=== PATIENT | female | born 1990 | race Caucasian/White ===

== ENCOUNTER → 2018-02-18 | Outpatient (CLI) | payer BC ==
[~2018-02-18] MED LIST: BUTA1TAB9 PO; ESCI5TAB PO; SULF1TAB35 PO
--- NOTE | 2018-02-18 14:51 | Diagnostic Imaging Report ---
INDICATION: Lump under the chin. FINDINGS: Sonographic interrogation of the area of lump was performed. There is a hypoechoic solid nodule at this location measuring 9 mm x 6 mm x 11 mm. This has an echogenic center and is suggestive of a lymph node. No other abnormality is seen. IMPRESSION: Normal sized lymph node at the area of palpable abnormality below the patient's chin. Dictated by: Dictated on workstation # [id number]
== END ==
LOC: RAD 13:30
PROVIDERS: ATTEND Nurse Practitioner
DX: R22.1 Localized swelling, mass and lump, neck (principal)
CPT/HCPCS: 76536

== ENCOUNTER 2021-02-14 09:15 | Emergency (ER) | payer SELFPAY ==
[~2021-02-14] VITALS: Ht 165 cm; Wt 172.0 kg
[~2021-02-14 09:15] MED LIST changes: +BUTA-235 PO; -BUTA1TAB9 PO
--- NOTE | 2021-02-14 10:09 | ED Abdominal Pain ---
General Chief Complaint: Abdominal/GI Problems Stated Complaint: RLQ PAIN, DIARRHEA Nursing Triage Note: PT AMB TO ROOM 6 PT CO OF R LQP 6/10 CRAMPING, PT STATES HAS STARTED HAVING DIARRHEA THIS AM SEVERAL TIMES. PT STATES NAUSEATED BUT NO VOMITING. PT DENIES FEVERS OR COUGH. Source of Information: Patient Exam Limitations: No Limitations History of Present Illness Date Seen by Provider: Feb 14, 2021 Time Seen by Provider: 09:54 Initial Comments Patient is a 30-year-old female who presents to the emergency department today with a chief complaint of right lower quadrant abdominal cramping and suprapubic discomfort. Patient states she woke up this morning with an onset of diarrhea that she states is partly watery. She states she is a little bit nauseated when she gets up and moves around but no vomiting. She has not had anything to eat other than a small applesauce and some sips of water this morning. Patient denies any discrete dysuria, urgency or frequency but states she has not been able to urinate since she got up the first time this morning. No recent fevers, chills, URI symptoms, cough or congestion. She ate food cooked at home all day yesterday. No other sick contacts. Patient has had no prior abdominal surgeries. She was concerned she might have appendicitis. All other review of systems reviewed and negative except as stated. Timing/Duration: 4-6 Hours Severity/Quality: Moderate Location: Other (Right lower quadrant pain, suprapubic pain) Radiation: No Radiation Associated Symptoms: Denies Symptoms Allergies and Home Medications Allergies Coded Allergies: amoxicillin (Verified Allergy, Unknown, 11/19/15) Home Medications Butalb/Acetaminophen/Caffeine 1 Each Tablet, 1 TAB PO UD, (Reported) Escitalopram Oxalate 5 Mg Tablet, Unknown Dose PO UD, (Reported) Sulfamethoxazole/Trimethoprim 1 Each Tablet, 1 EACH PO BID Prescribed by: BRIDGET TURPIN on 11/19/15 2701 Patient Home Medication List Home Medication List Reviewed: Yes Review of Systems Review of Systems Constitutional: see HPI EENTM: No Symptoms Reported Respiratory: No Symptoms Reported Cardiovascular: No Symptoms Reported Gastrointestinal: Abdominal Pain Genitourinary: Other (Decreased urinary frequency) Musculoskeletal: no symptoms reported Skin: no symptoms reported Psychiatric/Neurological: No Symptoms Reported All Other Systems Reviewed Negative Unless Noted: Yes Past Sifrvje-Laewrb-Gdwyib Hx Seasonal Allergies Seasonal Allergies: No Past Medical History Adenoidectomy Last Menstrual Period: Jan 24, 2021 Reproductive Disorders: No Anxiety Adverse Reaction/Blood Tranf: No Physical Exam Vital Signs Vital Signs - First Documented 02/14/21 09:15 Temp 35.7 Pulse 85 Resp 18 B/P (MAP) 168/114 (132) Pulse Ox 98 Capillary Refill : Less Than 3 Seconds Height/Weight/BMI Height: 5'5" Weight: 260lbs. oz. [id number]; 63.00 BMI Method:Stated General Appearance: WD/WN, no apparent distress HEENT: normal ENT inspection Neck: normal inspection Respiratory: lungs clear, normal breath sounds, no respiratory distress, no accessory muscle use Cardiovascular: regular rate, rhythm Gastrointestinal: soft, other (Mild tenderness/"pressure" right lower quadrant and suprapubic area) Extremities: non-tender, normal inspection, no pedal edema, no calf tenderness Back: normal inspection Neurologic/Psychiatric: alert, normal mood/affect, oriented x 3 Skin: normal color, warm/dry Progress/Results/Core Measures Results/Orders Lab Results Laboratory Tests Test 02/14/21 10:22 02/14/21 10:48 02/14/21 11:16 Range/Units Urine Color YELLOW YELLOW Urine Clarity CLEAR CLEAR Urine pH 6.0 6.0 5-9 Urine Specific Baker >=1.030 1.025 H 1.016-1.022 Urine Protein 1+ H NEGATIVE NEGATIVE Urine Glucose (UA) NEGATIVE NEGATIVE NEGATIVE Urine Ketones NEGATIVE NEGATIVE NEGATIVE Urine Nitrite NEGATIVE NEGATIVE NEGATIVE Urine Bilirubin 1+ H NEGATIVE NEGATIVE Urine Urobilinogen 0.2 0.2 < = 1.0 MG/DL Urine Leukocyte Esterase NEGATIVE NEGATIVE NEGATIVE Urine RBC (Auto) 3+ H 3+ H NEGATIVE White Blood Count 8.7 4.3-11.0 10^3/uL Red Blood Count 4.81 3.80-5.11 10^6/uL Hemoglobin 11.6 11.5-16.0 g/dL Hematocrit 38 35-52 % Mean Corpuscular Volume 80 80-99 fL Mean Corpuscular Hemoglobin 24 L 25-34 pg Mean Corpuscular Hemoglobin Concent 30 L 32-36 g/dL Red Cell Distribution Width 15.5 H 10.0-14.5 % Platelet Count 379 130-400 10^3/uL Mean Platelet Volume 9.6 9.0-12.2 fL Immature Granulocyte % (Auto) 0 % Neutrophils (%) (Auto) 79 H 42-75 % Lymphocytes (%) (Auto) 16 12-44 % Monocytes (%) (Auto) 4 0-12 % Eosinophils (%) (Auto) 0 0-10 % Basophils (%) (Auto) 1 0-10 % Neutrophils # (Auto) 6.9 1.8-7.8 10^3/uL Lymphocytes # (Auto) 1.4 1.0-4.0 10^3/uL Monocytes # (Auto) 0.4 0.0-1.0 10^3/uL Eosinophils # (Auto) 0.0 0.0-0.3 10^3/uL Basophils # (Auto) 0.0 0.0-0.1 10^3/uL Immature Granulocyte # (Auto) 0.0 0.0-0.1 10^3/uL Sodium Level 138 135-145 MMOL/L Potassium Level 4.1 3.6-5.0 MMOL/L Chloride Level 101 98-107 MMOL/L Carbon Dioxide Level 25 21-32 MMOL/L Anion Gap 12 5-14 MMOL/L Blood Urea Nitrogen 11 7-18 MG/DL Creatinine 0.85 0.60-1.30 MG/DL Estimat Glomerular Filtration Rate > 60 BUN/Creatinine Ratio 13 Glucose Level 130 H 70-105 MG/DL Calcium Level 9.0 8.5-10.1 MG/DL Urine RBC 25-50 H /HPF Urine WBC RARE /HPF Urine Squamous Epithelial Cells 10-25 H /HPF Urine Crystals NONE /LPF Urine Bacteria TRACE /HPF Urine Casts NONE /LPF Urine Mucus MODERATE H /LPF Urine Culture Indicated NO My Orders Orders - RNEEE MENARD MD Ed Iv/Invasive Line Start (02/14/21 10:05) Cbc With Automated Diff (02/14/21 10:05) Basic Metabolic Panel (02/14/21 10:05) Ns Iv 1000 Ml (Sodium Chloride 0.9%) (02/14/21 10:15) Ua Culture If Indicated (02/14/21 10:05) Urinalysis Dipstick Only (02/14/21 10:22) Ondansetron Injection (Zofran Injectio (02/14/21 11:00) Ketorolac Injection (Toradol Injection) (02/14/21 11:15) Medications Given in ED Current Medications Medications Dose Ordered Sig/Luis Miguel Route Start Time Stop Time Status Last Admin Dose Admin Ketorolac Tromethamine 30 mg ONCE ONCE IVP 02/14/21 11:15 02/14/21 11:16 DC 02/14/21 11:06 30 MG Ondansetron HCl 8 mg ONCE ONCE IVP 02/14/21 11:00 02/14/21 11:01 DC 02/14/21 11:04 8 MG Vital Signs/I&O 02/14/21 09:15 Temp 35.7 Pulse 85 Resp 18 B/P (MAP) 168/114 (132) Pulse Ox 98 Blood Pressure Mean: 132 Progress Progress Note : Time: 12:18 Progress Note Patient seen and examined, 30-year-old with a chief complaint of nausea, lower abdominal discomfort and diarrhea. Evaluation today includes a physical exam, CBC, BMP and urinalysis. Patient's labs have been reviewed and are all reassuring. The patient's examination is significant only for some mild abdominal "pressure" with palpation. Her vital signs are stable she is not febrile. She has been treated in the emergency department with Zofran, Toradol and IV fluids. She will be sent home with encouragement to drink plenty of fluids to stay well-hydrated, Zofran for nausea and follow-up with her primary care physician. Patient verbalized understanding. All questions have been sought and answered she is stable for discharge. Departure Impression Primary Impression: Abdominal pain Qualified Codes: R10.31 - Right lower quadrant pain Additional Impression: Enteritis Disposition: 01 HOME, SELF-CARE Condition: Stable Departure-Patient Inst. Decision time for Depature: 12:19 Referrals: NO,LOCAL PHYSICIAN (PCP) Primary Care Physician SONYA ELAM (Family) Primary Care Physician Patient Instructions: Stomach Ache and Stomach Upset Add. Discharge Instructions: Drink plenty of fluids to stay well-hydrated. I have sent a prescription for Zofran, and nausea medication, to your pharmacy for you to take as needed every 8 hours. As long as you are not having any blood in your stools or high fever you can take [id number] Imodium tablets to help stop your diarrhea. If you develop a fever or worsening pain or any other emergent concerning symptoms please come back to the emergency room for reevaluation. Scripts Ondansetron (Ondansetron Odt) 4 Mg Tab.rapdis 4 MG PO Q8H PRN for nausea, #15 TAB Prov: RENEE MENARD MD 02/14/21 RENEE MENARD MD Feb 14, 2021 10:09
[2021-02-14] MEDS ORDERED: NS IV 1000 ML 1,000 ML IV SCH (10:15)
[2021-02-14 10:28] LABS: CLARITY,URINE CLEAR; COLOR,URINE YELLOW; GLUCOSE, URINE (UA) NEGATIVE (NEGATIVE); KETONES,URINE NEGATIVE (NEGATIVE); LEUKOCYTE ESTERASE ,URINE NEGATIVE (NEGATIVE); NITRITE,URINE NEGATIVE (NEGATIVE); PROTEIN,URINE 1+ (NEGATIVE)
[2021-02-14 10:31] LABS: BILIRUBIN,URINE 1+ (NEGATIVE)
[2021-02-14 10:54] LABS: BASOPHILS % (AUTO) 1 % (0-10); EOSINOPHILS % (AUTO) 0 % (0-10); HEMATOCRIT 38 % (35-52); HEMOGLOBIN 11.6 g/dL (11.5-16.0); LYMPHOCYTES # (AUTO) 1.4 10^3/uL (1.0-4.0); LYMPHOCYTES % (AUTO) 16 % (12-44); MEAN CORPUSCULAR HEMOGLOBIN 24 pg (25-34); MEAN CORPUSCULAR HGB CONC 30 g/dL (32-36); MEAN CORPUSCULAR VOLUME 80 fL (80-99); MEAN PLATELET VOLUME 9.6 fL (9.0-12.2); MONOCYTES # (AUTO) 0.4 10^3/uL (0.0-1.0); MONOCYTES % (AUTO) 4 % (0-12); NEUTROPHILS # (AUTO) 6.9 10^3/uL (1.8-7.8); NEUTROPHILS % (AUTO) 79 % (42-75); PLATELET COUNT 379 10^3/uL (130-400); WHITE BLOOD COUNT 8.7 10^3/uL (4.3-11.0)
[2021-02-14] MEDS ORDERED: ONDANSETRON 4 MG/2 ML (SDV) Z0FRAN IVP ONE (11:00)
[2021-02-14] MEDS ORDERED: KETOROLAC 30 MG/ML VIAL IVP ONE (11:15)
[2021-02-14 11:24] LABS: BILIRUBIN,URINE NEGATIVE (NEGATIVE); CLARITY,URINE CLEAR; COLOR,URINE YELLOW; GLUCOSE, URINE (UA) NEGATIVE (NEGATIVE); KETONES,URINE NEGATIVE (NEGATIVE); LEUKOCYTE ESTERASE ,URINE NEGATIVE (NEGATIVE); NITRITE,URINE NEGATIVE (NEGATIVE); PROTEIN,URINE NEGATIVE (NEGATIVE)
[2021-02-14 11:30] LABS: CHLORIDE 101 MMOL/L (98-107); POTASSIUM 4.1 MMOL/L (3.6-5.0); SODIUM 138 MMOL/L (135-145)
[2021-02-14 11:31] LABS: GLUCOSE 130 MG/DL (70-105)
[2021-02-14 11:33] LABS: CARBON DIOXIDE 25 MMOL/L (21-32)
[2021-02-14 11:35] LABS: CREATININE SERUM 0.85 MG/DL (0.60-1.30); GFR ESTIMATED > 60
[2021-02-14 11:36] LABS: BUN/CREATININE RATIO 13
[2021-02-14 11:40] LABS: BACTERIA,URINE TRACE /HPF; RBC,URINE 25-50 /HPF; WBC,URINE RARE /HPF
[2021-02-14] MEDS ORDERED: ONDA4TAB11 PO (12:21)
[2021-02-14 12:26] VITALS: BP 131/82
== END 2021-02-14 12:27 | disposition home or self-care (01) ==
LOC: EDUNIT# 09:15 → ER 09:17
DX: K52.9 Noninfective gastroenteritis and colitis, unspecified (principal); F41.9 Anxiety disorder, unspecified; Z79.899 Other long term (current) drug therapy
CPT/HCPCS: 36415; 80048; 81000; 81002; 85025